=== PATIENT | female | born 1990 ===

== ENCOUNTER 2025-01-30 12:48 | Emergency (ER) | payer SELFPAY | END 2025-01-30 15:55 | disposition home or self-care (01) | LOC: MW.ED 12:48 | DX: S42.251A Displaced fracture of greater tuberosity of right humerus, initial encounter for closed fracture (principal); W00.1XXA Fall from stairs and steps due to ice and snow, initial encounter; Y93.89 Activity, other specified | CPT/HCPCS: 73030-26-RT; 73030-RT; 73060-26-RT; 73060-RT; 99282; 99283 ==